=== PATIENT | male | born 1985 | race Caucasian/White ===

== ENCOUNTER 2018-04-19 02:57 | Emergency (ER) | payer OTHER ==
[~2018-04-19] VITALS: Ht 175.3 cm; Wt 97.6 kg
[~2018-04-19 02:57] MED LIST: AUGMENTIN875 MG PO; NAPROSYN500 MG PO; NORCO 5/3251 TABLET PO
[2018-04-19 04:12] LABS: HEMATOCRIT 41.5 % (38.0-50.0); HEMOGLOBIN 14.9 G/DL (12.5-16.6); MCH 34.7 PG (29.0-34.0); MCHC 35.9 G/DL (30.0-36.0); MCV 96.5 FL (86-99); PLATELET COUNT 220 K/uL (156-360); RBC DIS.WIDTH-CV 11.8 % (11.8-14.6); RBC DIS.WIDTH-SD 41.9 % (39-53); WHITE BLOOD COUNT 10.6 K/uL (4.1-10.2)
[2018-04-19 04:21] LABS: ALBUMIN 4.6 g/dL (3.2-4.8)
[2018-04-19 04:22] LABS: CHLORIDE 105 mEq/L (99-109); POTASSIUM 5.2 mEq/L (3.7-5.4); SODIUM 137 mEq/L (136-147)
[2018-04-19 04:24] LABS: GLUCOSE 94 mg/dL (70-99); TOTAL PROTEIN 7.8 g/dL (6.4-8.3)
[2018-04-19 04:26] LABS: TOTAL BILIRUBIN 0.9 mg/dL (0.0-1.0)
[2018-04-19 04:27] LABS: ALKALINE PHOSPHATASE 86 IU/L (3-129)
[2018-04-19 04:28] LABS: CREATININE 0.9 mg/dL (0.6-1.3); GFR ESTIMATE (CALCULATED) > 59 mL/min/ (58.99-99999)
[2018-04-19 04:29] LABS: AST (GOT) 37 IU/L (2-34); UREA NITROGEN (BUN) 11 mg/dL (9-23)
[2018-04-19 04:31] LABS: ALT (GPT) 49 IU/L (3-49); LIPASE 165 U/L (1.0-51.0)
[2018-04-19 05:31] LABS: APPEARANCE CLEAR ((CLEAR)); BILIRUBIN NEGATIVE; BLOOD MODERATE; COLOR YELLOW ((YELLOW)); GLUCOSE (STRIP) NEGATIVE; KETONES NEGATIVE; LEUKOCYTES NEGATIVE; NITRITE NEGATIVE; PROTEIN (STRIP) NEGATIVE; SPECIFIC GRAVITY 1.044 (1.000-1.030); UROBILINOGEN 0.2 MG/DL (0.2-1.0)
[2018-04-19 05:39] LABS: BACTERIA NONE SEEN /HPF; EPITHELIAL CELLS RARE /HPF; MUCUS TRACE /LPF; UCUL ADDED? NO; WHITE BLOOD CELLS 0-5 /HPF (0-5)
[2018-04-19] MEDS ORDERED: AUGMENTIN875 MG PO (06:47)
[2018-04-19] MEDS ORDERED: NORCO 5/3251 TABLET PO (06:51)
[2018-04-19] MEDS ORDERED: MOTRIN800 MG PO (06:51)
[2018-04-19 06:58] VITALS: BP 152/100
== END 2018-04-19 06:59 | disposition home or self-care (01) ==
LOC: EME 02:57
PROVIDERS: Physician Assistant
PROC: 0D9QXZZ Drainage of Anus, External Approach (ICD-10-PCS; principal; 2018-04-19)
DX: K61.0 Anal abscess (principal); F17.200 Nicotine dependence, unspecified, uncomplicated
CPT/HCPCS: 74177; 80053; 81003; 83690; 85027; 87070; 87075; 87076; 87077; 87185; 87186; 87205; 99281; 99284; J1885; J7030